=== PATIENT | male | born 1970 | race Caucasian/White ===

== ENCOUNTER 2024-12-23 21:23 | Emergency (ER) | payer BC, SELFPAY ==
[2024-12-23 21:24] VITALS: BP 140/74
[2024-12-23 23:10] VITALS: BMI 27.8
[2024-12-23 23:11] VITALS: BP 146/76
--- NOTE | 2024-12-23 23:17 | ED.GENMED ---
History of Present Illness
General
Chief Complaint: Flank Pain
Source: patient
Time Seen by Provider: 12/23/24 23:02
Nursing documentation reviewed up to this point in time: agreed with
History of Present Illness
History of Present Illness:
54-year-old male presents to the emergency department with left flank pain and hematuria. Patient was seen in urgent care and had urinalysis done. Was given 60 of Toradol IM and sent to the emergency department. Upon arrival, patient states that
his pain is mostly under control. Though he had lab work and urine performed in urgent care we attempted to get urinalysis here. Patient had previously urinated and was unable to go again. Denies fever, chills, nausea or vomiting. Reports no
chest pain or shortness of breath.
Review of Systems
Review of Systems
Allergies reviewed?: Yes
All Other Systems: ROS reviewed and negative except as documented in HPI and ROS
Constitutional: Reports no symptoms
EENT: Reports no symptoms
Respiratory: Reports no symptoms
Cardiac: Reports no symptoms
ABD/GI: Reports no symptoms
: Reports flank pain, bleeding and dark urine
Musculoskeletal: Reports no symptoms
Skin: Reports no symptoms
Neurological: Reports no symptoms
Endocrine: Reports no symptoms
Hematologic/Lymphatic: Reports no symptoms
Psychiatric: Reports no symptoms
Phy Exam
General Physical Exam
General Presentation: well appearing and mild distress
General age: appears stated age
General Skin: warm and dry
General Habitus: normal
General Mental: alert
General Hydration: appears well hydrated
ENT Exam
ENT Exam: EOMI, pharynx normal, neck supple and normocephalic
Eye Exam
Eye Exam: PERRL, cornea clear and conjunctiva normal
Cardiovascular Exam
Cardiovascular Exam: regular rate/rhythm, no edema, no murmur and normal peripheral pulses
Pulmonary Exam
Pulmonary Exam: lungs clear, no respiratory distress, no rales, no crackles, no rhonchi, no stridor, no wheezing and no cough
Gastrointestinal Exam
Gastrointestinal Exam: normal bowel sounds, non tender, soft, no organomegaly, no pulsatile mass and non distended
Neurological Exam
Neurological Exam: alert, oriented x3, no motor deficits and speech normal
Musculoskeletal Exam
Musculoskeletal Exam: back tenderness (Left-sided CVA tenderness)
Skin Exam
Skin Exam: normal color and warm/dry
Psychiatric Exam
Psychiatric Exam: normal mood/affect
Course
Orders/Labs/Results
Orders:
Orders
12/23/24 22:45
Abdomen/Pelvis wo Contrast CT [CT Abd/pelvis Wo Iv Cont] Urgent
Comment: R/O kidney stone
Reason For Exam: left Flank pain blood in urine
12/24/24 00:31
Urinalysis Reflex To Culture Urgent
Date Specimen was Collected: 12/24/24
Time Specimen was Collected: 00:29
Urine Microscopic Reflex Cult Urgent
Urine Culture Urgent
TAHIRA Source: U
Specimen Description:
Date Specimen was Collected: 12/24/24
Time Specimen was Collected: 00:29
12/24/24 01:39
Cephalexin Monohydrate [Keflex] 500 mg PO NOW STA
Abnormal Lab Results
12/24/24
00:31
Ur Occult Blood Reflex 4+ A
(Negative)
Urine RBC >100 A /HPF
(0-2)
Urine Bacteria (Reflex) Moderate A
(Negative)
Urine Albumin (Reflex) 2+ A
(Neg - Trace)
Vital Signs
Initial and Last Documented VS:
Initial Vital Signs
Temp Pulse Resp BP Pulse Ox
97.9 F 70 20 140/74 97
12/23/24 21:24 12/23/24 21:24 12/23/24 21:24 12/23/24 21:24 12/23/24 21:24
Last Documented Vital Signs
Temp Pulse Resp BP Pulse Ox
97.9 F 70 18 146/76 100
12/23/24 21:24 12/23/24 23:11 12/23/24 23:11 12/23/24 23:11 12/23/24 23:11
*Critical Care Note
Total Time (30-74mins, 75-104mins- exclusive of procedures): Not Applicable
Update Note
Update Note:
NAME: KAILAKAROL Yolanda
DATE OF EXAM: 12/23/2024
Patient No: [id number]
Physician: AMAN^KAROL^Tera
Date of : 1970
Past Medical History (entered by Technologist):
Reason For Exam (entered by Technologist):
Other Notes (entered by Technologist): Pt developed L flank pain last night, brown urine today. Pt went to Urgent care and told he had blood in his urine and given 60mg IM toradol. Sent to ED to get checked for a kidney stone.
No prior
Additional Information (per [facility]iologist):
CT A/P
IMPRESSION:
4 mm obstructing in the distal left ureter, associated with mild to moderate left hydroureteronephrosis, with a notably prominent left extrarenal pelvis. Correlation with UA to assess for superimposed infection is recommended.
Bilateral renal calculi are also seen.
Mural thickening of the bladder may be related to decompressed status, though correlation with UA to assess for superimposed infection is recommended.
Age-indeterminate L1 compression fracture with mild height loss and anterior wedging, as well as approximately 4 mm retropulsion. Consider MRI to evaluate for acuity.
Additional findings: DJD. Probable hepatic cyst.
Report electronically transmitted @11:39 PM EST
ED Attending Note
-
Portions of this chart may have been created with voice recognition software.� Occasional wrong word or��sound alike� substitutions may have occurred due to the inherent limitations of voice recognition software.
Discharge Plan
Departure
Patient Disposition: Home (Routine Discharge)
Date of Disposition: 12/24/24
Time of Disposition: 01:39
Patient with high blood pressure during this ER visit?: Yes
Condition: Good
Discharge Problem:
Kidney stone on left side
Instructions: Flank Pain (DC), How to Strain Your Urine, BLOOD PRESSURE, Narcotic Pain Medication
Prescriptions:
New
oxycodone-acetaminophen [Percocet] 5-325 mg Tablet
1 tab PO Q6HPRN PRN (Reason: pain) Qty: 8 0RF
tamsulosin [Flomax] 0.4 mg Capsule
0.4 mg PO DAILY Qty: 7 0RF
diclofenac sodium 75 mg tablet,delayed release (DR/EC)
75 mg PO BID Qty: 10 0RF
Referrals:
Tomy Mane MD [Active] - Call in 1-3 days for appt
Priyank Puckett MD [Family Provider] -
Activity Restrictions/Additional Instructions:
Thank You for choosing [facility].
It was a pleasure meeting you and taking part in your care. We hope for your continued healing and wellness.
Please read discharge instructions in their entirety. However, they are for general education and may not describe your exact diagnosis at discharge. Information on your ER visit and medical conditions were discussed with you along with appropriate
follow up information...
If indicated, please take your medications as instructed and indicated on discharge paperwork.
Please schedule a follow up appointment as directed. Call to schedule an appointment
Please return to the emergency department with ANY change in, persisting, or worsening of symptoms. If any of your symptoms do not improve, or persist, or become more severe within 6-12 hours, please return to the emergency department for further
care.
Please return to the emergency department if you develop a headache, neck pain/stiffness, fever greater than 100.4F, chest pain, shortness of breath, persistent nausea, vomiting, slurred speech, difficulty walking, numbness/tingling, weakness, signs
of infection or any other symptoms that are worrisome to you.
If you have any questions or concerns please do not hesitate to call the Hospital at or E-mail me directly at [email or web address]
Interventions
Interventions:
*Risk Screen - Suicide Last Done: 12/23/24 21:24
*General Assessment Last Done: 12/23/24 21:24
*Neglect/Abuse Screening Last Done: 12/23/24 21:24
*ED- Fall Risk Assessment Last Done: 12/23/24 23:15
*ED COVID-19 Vaccine History Last Done: 12/23/24 23:15
QQ-Pohyoc-Rfdmtuexze Assessment Last Done: 12/23/24 23:16
ED-Male Genitourinary Assessment Last Done: 12/23/24 23:16
Discharge Date and Time
Print Language: [id number]
[2024-12-24 00:48] LABS: Urine Albumin 2+ (Neg - Trace); Urine Bilirubin Negative (Negative); Urine Character Clear (Clear); Urine Color Yellow; Urine Glucose Negative (Negative); Urine Ketone Negative (Negative); Urine Leukocyte Negative (Negative); Urine Nitrite Negative (Negative); Urine Occult Blood 4+ (Negative); Urine Urobilinogen Negative (Neg - 1+)
[2024-12-24 01:30] VITALS: BP 138/72
[2024-12-24 01:36] LABS: Urine Mucus Many
[2024-12-24 01:37] LABS: Urine Amorphous Seen; Urine Red Blood Cell >100 /HPF (0-2); Urine Squamous Cell >30 /LPF (Few)
[2024-12-24 01:38] LABS: Urine Bacteria Moderate (Negative)
[2024-12-24] MEDS: KEFLEX 500 MG PO (01:44)
== END 2024-12-24 01:57 | disposition home or self-care (01) ==
LOC: EMR 21:23
PROVIDERS: EMERGENCY PHYSICIAN Student in an Organized Health Care Education/Training Program; FAMILY PHYSICIAN Family Medicine
DX: N13.2 Hydronephrosis with renal and ureteral calculous obstruction (principal)
CPT/HCPCS: 99284; 74176; 81003; 81015; 87086